=== PATIENT | female | born 1995 | race African-American/Black ===

== ENCOUNTER 2020-06-30 09:29 | Emergency (ER) | payer SELFPAY ==
[~2020-06-30] VITALS: Ht 170.2 cm; Wt 70.0 kg
[2020-06-30 09:41] VITALS: BP 117/77
== END 2020-06-30 11:29 | disposition home or self-care (01) ==
LOC: ER 09:29
DX: T78.40XA Allergy, unspecified, initial encounter (principal); L50.9 Urticaria, unspecified; N76.0 Acute vaginitis; X58.XXXA Exposure to other specified factors, initial encounter
CPT/HCPCS: 99283